=== PATIENT | male | born 1975 | race African-American/Black ===

== ENCOUNTER 2019-08-25 17:56 | Emergency (ER) | payer SELFPAY ==
[~2019-08-25] VITALS: Ht 175.3 cm; Wt 74.4 kg
--- NOTE | 2019-08-25 17:58 | NUR ---
BIBA TAKEN TO BED 7
[2019-08-25 18:01] VITALS: BP 104/49
--- NOTE | 2019-08-25 18:26 | NUR ---
Patient being evaluated by Dr. Ceron at bedside.
--- NOTE | 2019-08-25 18:44 | NUR ---
44 Y/M BIBA C/O BILATERAL FOOT PAIN, PT WALKED UP TO A HOUSE AND TOLD FAMILY HIS FEET HURT FROM WALKING; EMS REPORTS PATIENT HAS PAPERWORK FROM [facility] AND WRIST BAND FROM [facility]. UPON ASSESSMENT PT NOT RESPONSIVE TO QUESTIONS, PT STATES "GET YOUR COMPUTER OUT OF HERE, I SEEE YOU, TAKE YOUR MEDICINE AND GET OUT OF HERE". PT RR EVEN AND UNLABORED. SKIN WARM TO TOUCH, PULSES 2+, VISIBLE BLISTERS IN BETWEEEN B TOES OF FEET. PT C/O PAIN TO FEET HX DENIES
--- NOTE | 2019-08-25 19:07 | NUR ---
Pt report RECEIVED FROM VICENTA FLETCHER. ASSUMED care at this time.
--- NOTE | 2019-08-25 19:07 | NUR ---
TRANSFER OF CARE TO [facility] AT THIS TIME.
--- NOTE | 2019-08-25 19:26 | NUR ---
AT BEDSIDE EXAMINING PT
--- NOTE | 2019-08-25 20:00 | NUR ---
Patient discharged with v/s stable. Written and verbal after care instructions given and explained. Patient alert, oriented and verbalized understanding of instructions. Ambulatory with steady gait. All questions addressed prior to discharge. ID band removed. Patient advised to follow up with PMD. Rx of LACTULOSE/DOXYCYCLINE given. Patient educated on indication of medication including possible reaction and side effects. Opportunity to ask questions provided and answered. GAVE PT BLANKET AND SOCKS. OFFERED PT HOMELESS PACKET/MEAL/BUS PASS AND PT DENIED WANTING ANY RESOURCES.
[2019-08-25 20:02] VITALS: BP 104/49
== END 2019-08-25 20:00 | disposition home or self-care (01) ==
LOC: MED 17:56
DX: L03.032 Cellulitis of left toe (principal); K59.00 Constipation, unspecified; Z88.0 Allergy status to penicillin
CPT/HCPCS: 99283